=== PATIENT | female | born 1995 | race Two or more races ===

== ENCOUNTER 2019-03-30 11:16 | Outpatient (CLI) | payer OTHER ==
[2019-05-02] MEDS ORDERED: PERCOCET 5-3251 EACH PO (14:33)
== END 2019-03-30 11:27 | disposition home or self-care (01) ==
LOC: LAB 11:16
DX: Z00.00 Encounter for general adult medical examination without abnormal findings (principal); E55.9 Vitamin D deficiency, unspecified; R10.84 Generalized abdominal pain; E78.49 Other hyperlipidemia; R42 Dizziness and giddiness

== ENCOUNTER → 2019-05-02 | Day surgery (SDC) | payer OTHER ==
[~2019-05-02] MED LIST: PERCOCET 5-3251 EACH PO
== END | disposition home or self-care (01) ==
LOC: ADM 04-25 07:45 → CIR.AMB 06:22
DX: K80.10 Calculus of gallbladder with chronic cholecystitis without obstruction (principal)

== ENCOUNTER 2019-07-20 11:19 | Outpatient (CLI) | payer OTHER | END 2019-07-20 11:27 | disposition home or self-care (01) | LOC: SONOGRAMA 11:19 | DX: E04.1 Nontoxic single thyroid nodule (principal) ==

== ENCOUNTER 2021-08-27 20:01 | Emergency (ER) | payer OTHER ==
[~2021-08-27] VITALS: Ht 165.1 cm; Wt 113.4 kg
[2021-08-27] MEDS ORDERED: ZOFRAN8 MG PO (20:33)
[2021-08-27] MEDS ORDERED: ANALPRAM HC 2.530 GM RECTAL (20:33)
== END 2021-08-27 20:36 | disposition home or self-care (01) ==
LOC: ER 20:01
DX: K64.9 Unspecified hemorrhoids (principal)

== ENCOUNTER 2023-06-22 16:07 | Inpatient (IN) | payer OTHER ==
[~2023-06-22] VITALS: Ht 165.1 cm; Wt 111.1 kg
[~2023-06-22 16:07] MED LIST changes: +ANALPRAM HC 2.530 GM RECTAL; +ZOFRAN8 MG PO
[2023-06-22 17:47] LABS: HEMATOCRIT 34.4 % (36.0-45.00); HEMOGLOBIN 11.3 g/dL (12.0-15.00); MEAN CELL VOLUME 73.9 fL (80.00-100.00); MEAN CORPUSCULAR HEMOGLOBIN 24.3 pg (27.00-32.0); MEAN CORPUSCULAR HGB CONC 32.9 g/dl (32.0-36.0); PLATELET COUNT 167 K/uL (150-450); RED BLOOD COUNT 4.66 M/uL (4.00-6.00); RED CELL DISTRIBUTION WIDTH 16.9 % (11.5-14.5)
[2023-06-22 18:01] LABS: INR < 0.93; PARTIAL THROMBOPLASTIN TIME 24.3 SECONDS (22.0-34.0); PROTHROMBIN TIME 9.7 SECONDS (9.0-11.5)
[2023-06-22 18:12] LABS: ALBUMIN 2.4 gm/dL (3.4-5.0); BILIRUBIN TOTAL 0.16 mg/dL (0.3-1.2); CALCIUM 8.6 mg/dL (8.5-10.1); CREATININE SERUM 0.57 mg/dL (0.55-1.02); GFR 127.23; POTASSIUM 3.69 mEq/L (3.5-5.1); TOTAL PROTEIN 5.4 gm/dL (6.4-8.2)
[2023-06-24] MEDS ORDERED: PRENATAL CAPLE1 EAC1 (07:52)
[2023-06-24] MEDS ORDERED: IRON240 MG (07:52)
[2023-06-24] MEDS ORDERED: SYNTHROID50 MCG PO (07:53)
[2023-06-25 09:29] LABS: HEMATOCRIT 36.2 % (36.0-45.00); HEMOGLOBIN 11.8 g/dL (12.0-15.00); MEAN CELL VOLUME 74.4 fL (80.00-100.00); MEAN CORPUSCULAR HEMOGLOBIN 24.3 pg (27.00-32.0); MEAN CORPUSCULAR HGB CONC 32.6 g/dl (32.0-36.0); PLATELET COUNT 169 K/uL (150-450); RED BLOOD COUNT 4.87 M/uL (4.00-6.00); RED CELL DISTRIBUTION WIDTH 16.8 % (11.5-14.5)
[2023-06-25 09:30] LABS: ALBUMIN 2.3 gm/dL (3.4-5.0); BILIRUBIN TOTAL 0.18 mg/dL (0.3-1.2); CALCIUM 8.7 mg/dL (8.5-10.1); CREATININE SERUM 0.48 mg/dL (0.55-1.02); GFR 155.14; GLOBULINA 3.3 G/DL (2.4-3.5); POTASSIUM 3.89 mEq/L (3.5-5.1); TOTAL PROTEIN 5.6 gm/dL (6.4-8.2)
[2023-06-26 10:18] LABS: HEMATOCRIT 29.1 % (36.0-45.00); HEMOGLOBIN 9.7 g/dL (12.0-15.00); MEAN CELL VOLUME 73.5 fL (80.00-100.00); MEAN CORPUSCULAR HEMOGLOBIN 24.4 pg (27.00-32.0); MEAN CORPUSCULAR HGB CONC 33.2 g/dl (32.0-36.0); PLATELET COUNT 152 K/uL (150-450); RED BLOOD COUNT 3.97 M/uL (4.00-6.00); RED CELL DISTRIBUTION WIDTH 17.1 % (11.5-14.5)
[2023-06-26 10:21] LABS: ALBUMIN 1.8 gm/dL (3.4-5.0); BILIRUBIN TOTAL 0.29 mg/dL (0.3-1.2); CALCIUM 8.4 mg/dL (8.5-10.1); CREATININE SERUM 0.54 mg/dL (0.55-1.02); GFR 135.42; GLOBULINA 2.5 G/DL (2.4-3.5); POTASSIUM 3.67 mEq/L (3.5-5.1); TOTAL PROTEIN 4.3 gm/dL (6.4-8.2)
== END 2023-06-28 14:58 | disposition home or self-care (01) | DRG 788 ==
LOC: LDR 06-24 07:07 → OB/GYN 06-24 16:06
PROVIDERS: ADMIT Obstetrics & Gynecology; ATTEND Obstetrics & Gynecology
PROC: 3E0P7VZ Introduction of Hormone into Female Reproductive, Via Natural or Artificial Opening (ICD-10-PCS; 2023-06-24)
PROC: 4A1HXCZ Monitoring of Products of Conception, Cardiac Rate, External Approach (ICD-10-PCS; 2023-06-24)
PROC: 3E033VJ Introduction of Other Hormone into Peripheral Vein, Percutaneous Approach (ICD-10-PCS; 2023-06-25)
PROC: 10D00Z1 Extraction of Products of Conception, Low, Open Approach (ICD-10-PCS; principal; 2023-06-25 20:00)
DX: O61.0 Failed medical induction of labor (principal); O62.0 Primary inadequate contractions; O33.8 Maternal care for disproportion of other origin; O99.824 Streptococcus B carrier state complicating childbirth; Z3A.39 39 weeks gestation of pregnancy; Z37.0 Single live birth; Z20.822 Contact with and (suspected) exposure to COVID-19